=== PATIENT | female | born 1975 | race Caucasian/White ===

== ENCOUNTER 2025-01-10 13:15 | Emergency (ER) | payer OTHER ==
[~2025-01-10] VITALS: Ht 172.7 cm; Wt 50.0 kg
--- NOTE | 2025-01-10 13:26 | ED.PDOC ---
HPI Comments HPI: Poor Historian. 49 y.o female presents to the ED for an evaluation of a finger injury. Patient was at work using a cutting blade and she accidently sliced her right thumb. Patient wrapped her thumb but noted that there was not a lot of blood. Patient reports incident occurred one hour ago at where. Patient is up to date with tetanus one year ago. Vitals BP: 130/70 HR: 107 Temp: 98.1 F RR: 16 SPO2: 96% RA Past medical history: Skin cancer Past surgical history: Denies Allergies: Denies REVIEW OF SYSTEMS: CONSTITUTIONAL: Denies acute: fever, diaphoresis, chills, generalized weakness. HEAD: Denies acute: headache, photophobia Eyes: Denies acute: Double vision, vision loss, eye pain, eye discharge. EARS: Denies acute: tinnitus, hearing loss, ear discharge, ear pain, THROAT: Denies acute: sore throat, swelling, difficulty swallowing , pain with swallowing, change in voice. NECK: Denies acute: neck pain, neck swelling, stiff neck. HEART: Denies acute : chest pain, palpitations, LUNGS: Denies acute: SOB, wheezing, cough, hemoptysis ABDOMEN: Denies acute: abdominal pain, Nausea, Vomiting, diarrhea, melena , hematemesis, hematochezia SKIN: Denies acute: rash, redness, lesions, itchiness. EXTREMITIES: Denies acute: calf pain, numbness, tingling, weakness, Denies acute: Low back pain. Neuro: Denies acute: focal neurological deficit, motor or sensory focal neurological deficit, tremors, seizure like activity, confusion, dizziness, change in mental status, loss of bowel or bladder function, cauda equina like symptoms. : Denies acute: dysuria, hematuria, flank pain, increase in urinary frequency. PSYCH: Denies acute: hallucination, suicidal ideation, homicidal ideation. FEMALE: Denies acute: abnormal vaginal bleeding, foul odor, unusual discharge. PHYSICAL EXAM: General: [id number] acute distress, awake and alert. Head: normocephalic, atraumatic. Neck: supple, trachea is midline, no swelling. Throat: Normal phonation. Eyes:, no erythema, no purulent discharge, no proptosis, no icterus. Heart: regular rate, regular rhythm, no significant murmur appreciated. Lungs: no apparent respiratory distress, Able to speak in full sentences. No wheezing, no rhonchi, no crackles. No stridors Clear to auscultation bilaterally. Abdomen: non tender to palpation, non distended, soft, no guarding, no rebound, + bowel sounds. Neuro: Awake, Alert, oriented to name, self, situation, follows commands GCS=15. Speech is normal. Skin: no petechia, no purpura, no cyanosis, non-pale, not jaundice. Lower extremities: --no - Pitting edema no deformity, no focal swelling, no calf TTP. Makes eye contact. moves all four extremities. Face: no apparent facial droop. Ambulating in the ED independently. Evaluation of the affected digit: Noted right thumb complete amputation at the base of the nail bed. Bleeding was stopped with a [place] tourniquet. Nonadhesive gauze was applied. Bleeding was controlled. Patient is neurov ascularly intact in the affected extremity. Radial pulses palpable. Patient is otherwise neurovascularly intact in the affected digit and hand. The wound appears clean. The attached amputated tip of the thumb was secured in a bag on ice. ED COURSE: Time Seen by MD: 13:19 Reviewed Notes: Nurses Notes, Allergies Allergies: Coded Allergies: NO KNOWN ALLERGIES (Unverified , 01/10/25) Information Source: Patient Mode of Arrival: Ambulatory Complexity: Complex Laceration Length (cm): 0 (Complete amputation through the thumb) Past Medical History PAST MEDICAL HISTORY: Cancer Surgical History: Denies all surgeries VETERINARY RECEPTIONIST History: No Pertinent VETERINARY RECEPTIONIST History Family History Family History: Reviewed,noncontributory to illness Social History Smoker: Non-Smoker Alcohol: Denies ETOH Use Drugs: Denies Drug Use Lives In: Home Was a procedure done? Was a procedure done?: No Differential diagnosis Generic Laceration: Fracture, Retained Foriegn Body, Neurovascular Injury, Tendon Injury, Abrasion/Contusion, Laceration, Avulsion, Amputation X-Ray, Labs, Meds, VS Vital Signs Date Time Temp Pulse Resp B/P (MAP) Pulse Ox O2 Delivery O2 Flow Rate FiO2 01/10/25 17:08 98.0 61 16 140/76 (97) 98 98.0 01/10/25 17:07 61 16 140/76 01/10/25 16:30 60 16 121/62 01/10/25 16:26 97.7 60 16 121/62 (81) 97 97.7 01/10/25 14:51 120/80 01/10/25 14:01 80 14 96 Room Air* 0 21 01/10/25 13:48 130/78 01/10/25 13:15 98.1 107 16 130/78 (95) 96 Current Medications Medications (Trade) Dose Ordered Sig/Branden Route Start Time Stop Time Status Last Admin Cefazolin Sodium 50 ml @ 100 mls/hr ONCE ONCE IV 01/10/25 13:30 01/10/25 13:59 DC 01/10/25 13:48 Fentanyl Citrate 100 mcg ONCE ONCE IV 01/10/25 13:30 01/10/25 13:31 DC 01/10/25 13:48 Sodium Chloride 1,000 ml @ 1,000 mls/hr Q1H ONCE IV 01/10/25 13:30 01/10/25 14:29 DC 01/10/25 13:46 Fentanyl Citrate 100 mcg ONCE ONCE IV 01/10/25 14:30 01/10/25 14:43 DC 01/10/25 14:51 Acetaminophen/ Hydrocodone Bitart ([place] 5/325MG Tab) 1 tab ONCE ONCE PO 01/10/25 14:30 01/10/25 14:43 DC 01/10/25 14:52 Hydromorphone HCl (Dilaudid Injection) 1 mg ONCE ONCE IV 01/10/25 16:15 01/10/25 16:17 DC 01/10/25 16:[address] [address] Ph: [phone] DIAGNOSTIC IMAGING Diagnostic Imaging Report : [id number] Signed PATIENT: XIAO PADILLA LACCT: [id number] UNIT: [id number] : 1975 LOC: ER ROOM / BED: / AGE / SEX: 49 / F ADM STATUS: REG ER SERVICE 1323 ORDERING PHYSICIAN: RAMO YOUSSEF DO PROCEDURE(s): RHAN - R HAND 3 VIEW XRAY REASON: thumb amputation ORDER NUMBER(s): [id number], ACCESSION NUMBER(s): [id number] EXAM: XY R HAND 3 VIEW XRAY CLINICAL INDICATION: thumb amputation TECHNIQUE: XY R HAND 3 VIEW XRAY Comparison: None FINDINGS/IMPRESSION: Amputation of the distal portion of the distal 1st phalanx. Soft tissue laceration is present. ATED BY: CASI SPENCE MD DICTATED DATE/TIME: 01/10/25 141 SIGNED BY: CASI SPENCE MD SIGNED DATE/TIME: 01/10/25 1416 CC: Time of 1ST Reevaluation: 13:22 Reevaluation 1ST: Unchanged Time of 2ND Reevaluation: 14:26 (The case was discussed with the [facility] ER team for higher level of care (HPI, physical exam, labs and diagnostic tests that were available at the time of disposition, ED course, treatment plan) on the phone. They agreed to accept the patient at their facility for further evaluation and treatment. Dr. Pizano) Reevaluation 2ND: Unchanged Patient Education/Counseling: Diagnosis, Treatment Family Education/Counseling: Other Comments Patient presented with the above HPI.--thumb amputation----workup was initiated. patient was found with the above mentioned diagnosis. the following medications were ordered: please refer to order lists of meds and tests obtained by myself Dr. Youssef. Patient ED course and VS have been stabilized. Patient has been reassessed in the ED and remained in a stable condition. Pertinent incidental findings were discussed with the patient and/or family. Patient/family voices understanding and is agreeable with plan. Patient has been observed in the ED adequate length of time to insure improvement/stability. Escalation of care considered: Consideration of escalation to observation or admission Patient was transferred to a trauma facility higher level of care where there is a hand surgeon available. I also sent pictures of the thumb to Dr. Maria Guadalupe garcia the ortho resident on-call at [facility] to review. Spoke with the ER team at the receiving facility who accepted the transfer. X- ray was obtained and patient was given IV antibiotics. All the reports of any imaging studies that were ordered by myself were reviewed by myself. Departure 1 Departure Time of Disposition: 14:28 Impression: Primary Impression: Amputation of right thumb Disposition: 02 SHORT TERM HOSPITAL Admit to: Tele Condition: Guarded Discharged With: Self Critical Care Note Critical Care Time?: Yes (1 hr-critical care time only) I personally scribed for RAMO YOUSSEF DO ([email or web address]) on 01/10/25 at 13:26. Electronically submitted by Kary Chu ([facility]). I personally scribed for RAMO YOUSSEF DO ([email or web address]) on 01/10/25 at 16:50. Electronically submitted by Kary Chu ([facility]). I personally scribed for RAMO YOUSSEF DO ([email or web address]) on 01/10/25 at 21:12. Electronically submitted by Kary Chu ([facility]). RAMO YOUSSEF DO Jan 10, 2025 13:26
[2025-01-10] MEDS: SODIUM CHLORIDE 0.9% 1,000 ML IV ONE (13:46)
[2025-01-10] MEDS: fentaNYL CITRATE 100 MCG/2 ML VL IV ONE ×2 (13:48→14:51)
[2025-01-10] MEDS: ceFAZolin 1GM/50ML 50 ML IV ONE (13:48)
[2025-01-10 14:01] VITALS: PULSE 80; RESP 14; O2SAT 96
--- NOTE | 2025-01-10 14:18 | DVH ---
EXAM: XY R HAND 3 VIEW XRAY CLINICAL INDICATION: thumb amputation TECHNIQUE: XY R HAND 3 VIEW XRAY Comparison: None FINDINGS/IMPRESSION: Amputation of the distal portion of the distal 1st phalanx. Soft tissue laceration is present.
[2025-01-10] MEDS: HYDROcodone-ACET 5/325MG TAB PO ONE (14:52)
[2025-01-10] MEDS: HYDROmorphone HCL 2 MG/ML VL/or syr IV ONE (16:30)
[2025-01-10 17:08] VITALS: BP 140/76; PULSE 61; RESP 16; TEMP 98; O2SAT 98
== END 2025-01-10 17:27 | disposition short-term general hospital (02) ==
LOC: ER 13:15
DX: S68.011A Complete traumatic metacarpophalangeal amputation of right thumb, initial encounter (principal); Z85.828 Personal history of other malignant neoplasm of skin; W26.8XXA Contact with other sharp object(s), not elsewhere classified, initial encounter; Y93.89 Activity, other specified; Y92.89 Other specified places as the place of occurrence of the external cause; Y99.8 Other external cause status
CPT/HCPCS: 73130; 96365; 96375; 96376; 99285; J0690; J1171; J3010; J7030